=== PATIENT | male | born 2000 | race Caucasian/White ===

== ENCOUNTER 2021-02-20 20:16 | Emergency (ER) | payer BC, SELFPAY ==
[2021-02-20 20:21] VITALS: BP 151/74; PULSE 81; RESP 14; TEMP 36.4; O2SAT 97
--- NOTE | 2021-02-20 20:40 | ED.GENADUL_ITS ---
Discharge Plan Disposition Patient Disposition: HOME Condition: Stable Discharge Details Clinical Impression: Rash Primary Care Provider: Nazario Redman ED Provider: Deejay Johns Home Meds and New Rx's Prescriptions: Continued ondansetron 4 MG tablet,disintegrating 4 mg PO Q8H PRN PRN (Reason: Nausea / Vomiting) Qty: 20 RF: 0 Discharge Instructions Instructions: Acute Rash (ED) Additional Instructions: Rash is not consistent with cellulitis or scabies. Likely secondary to something you came in contact while weed whacking on Friday. As we discussed treat with [id number] Benadryl, topical hydrocortisone cream, and calamine lotion as directed. Please watch for new or worsening symptoms and return to the ER for any concerns. Medical Decision Making 20-year-old male presents with pruritic rash on bilateral forearms that began Friday after he weed wacked outside on Friday with a short-sleeved shirt. He appears well, nontoxic, rash is nowhere else on the body. Clinically this is likely a dermatitis from whatever he may have come in contact with while weed whacking. No one else at home has similar symptoms. No signs of cellulitis or scabies. The rash is only present in the area that was exposed. Discussed presentation and options. Patient comfortable treating this conservatively as a likely contact dermatitis. Will maximize therapy of oral Benadryl, hydrocortisone topical cream, as well as calamine lotion. Patient has no additional questions or concerns and is comfortable with this plan. Medical Records Medical records reviewed: Yes I reviewed the patient's medical records. HPI General Mode of arrival: ambulatory . Date/Time Provider Initiated Documentation: 02/20/21 20:17 . Limitations to Documentation: no limitations . Information obtained by: patient . HPI Narrative: This is a 20-year-old gentleman, denies significant past medical history. He states that on Friday he was outside weed whacking, wearing long pants and a short-sleeved shirt. Friday he awoke noticing a rash that was primarily on his right forearm but slightly on his left forearm. He states that he used a single dose of hydrocortisone cream as well as topical Benadryl. Did not make a significant difference in his symptoms. He states that his symptoms are itchy but denies any real pain. He denies fever, rash elsewhere in his body, numbness, tingling, weakness. He lives with his girlfriend, she is asymptomatic. Patient states that he looked online and he was concerned about the potential of scabies. He denies any contact with anyone who has scabies. He denies any rash in the webbing's of his hand. The pruritus is not worse at night. Related Data Home Medications Medication Instructions Recorded Confirmed ondansetron 4 mg PO Q8H PRN PRN #20 tabef 02/06/18 02/20/21 Previous Rx's Medication Instructions Recorded ondansetron 4 mg PO Q8H PRN PRN #20 tabef 02/06/18 Allergies Allergy/AdvReac Type Severity Reaction Status Date / Time No Known Allergies Allergy Unverified 02/20/21 20:23 General Stated Complaint: RashLesion STEVE: 5 Review of Systems Constitutional Constitutional: Denies fever(s) Cardiovascular Cardiovascular: Denies dyspnea Respiratory Respiratory: Denies dyspnea Musculoskeletal Musculoskeletal: Denies arthralgias, Denies numbness, Denies stiffness and Denies tingling Integumentary/Breasts Skin/Breast: Reports rash Neurologic Neurologic: Denies numbness and Denies tingling [facility] Social History Smoking/Tobacco Use Status: Never Smoking risk assessment performed?: Yes Alcohol Intake: current Alcohol Intake frequency: holidays/special occasions only Alcohol type: beer Drug use: Never Substance use type: does not use Do you feel safe at home: Yes Do you feel safe in your relationship?: Yes Exam Const General: cooperative, healthy appearing, comfortable and no acute distress Orientation: alert and awake [facility] Head: normal to inspection, normocephalic and atraumatic Eyes General: appearance normal, both eyes and all related structures Conjunctivae: conjunctivae normal Neck Neck: normal visual inspection, trachea midline and supple Resp Effort & Inspection: normal respiratory effort and able to speak in complete sentences Cardio Rate: regular rate Rhythm: regular rhythm Skin Rashes: rashes noted Other: Bilateral forearms, higher concentration on the right. There is a blanchable, erythematous, papular rash that is excoriated in some areas. The rash does not go above the upper arm T-shirt line. There is no warmth, tenderness, drainage or discharge. There is no induration or fluctuance. There is no marya levin in the webbing space on either hand. Full range of motion. Neuro, vascular, tendon intact. Normal capillary refill and radial pulse. Neuro General: patient alert, patient awake, moves all extremities and no focal motor deficits Cognition: normal cognition Speech: speech normal Gait: normal gait Sensory Exam: no sensory deficits noted Extrem General: full ROM and capillary refill normal Psych Appearance: grossly normal Mental Status: mental status grossly normal Course Vital Signs Vital signs: Vital Signs Temperature 36.4 C L 02/20/21 20: Pulse 81 02/20/21 20:21 Respiratory Rate 14 02/20/21 20:21 Blood Pressure 151/74 H 02/20/21 20:21 Pulse Oximetry 97 02/20/21 20:21 Temperature 36.4 C L 02/20/21 20:21 Temperature Source Skin 02/20/21 20:21 Pulse 81 02/20/21 20:21 Respiratory Rate 14 02/20/21 20:21 Respiratory Effort Non-Labored 02/20/21 20:24 Blood Pressure 151/74 H 02/20/21 20:21 Blood Pressure Position Sitting 02/20/21 20:21 Pulse Oximetry 97 02/20/21 20:21 Oxygen Delivery Method Room Air 02/20/21 20:21 Oxygen Flow Rate 0 02/20/21 20:21 Pain Level 0 02/20/21 20:21
== END 2021-02-20 20:45 | disposition home or self-care (01) ==
PROVIDERS: Emergency Provider Physician Assistant; PCP Specialist/Technologist Athletic Trainer
DX: R21 Rash and other nonspecific skin eruption (principal); L29.9 Pruritus, unspecified
CPT/HCPCS: 99282; 99283

== ENCOUNTER → 2023-10-14 20:59 | Outpatient (CLI) | payer BC, SELFPAY ==
--- NOTE | 2023-10-14 | DI.RAD_ITS ---
Exam(s) XR CHEST 2V PA LATERAL EXAM: XR CHEST 2V PA LATERAL CLINICAL HISTORY: CHEST PAIN ON BREATHING R07.1 TECHNIQUE: 2D digital imaging was performed. COMPARISON: CR CHEST 2 VIEWS PA,LAT from 01/26/2010 FINDINGS: HEART: Normal size. Aorta: Not dilated. PULMONARY VASCULATURE: Normal. LUNGS: Clear. PLEURAL SPACE: No pleural effusion or pneumothorax. BONE:Unremarkable for age. Soft tissues: Unremarkable. IMPRESSION: No acute abnormality. DATA REPOSITORY: RADIATION DOSE DELIVERED:
--- NOTE | 2023-10-14 16:18 | DI.VRAD_ITS ---
PROCEDURE INFORMATION: Exam: XR Chest Exam date and time: 10/14/2023 4:03 PM Age: 23 years old Clinical indication: Other: Chest pain on breathing TECHNIQUE: Imaging protocol: Radiologic exam of the chest. Views: 2 views. COMPARISON: No relevant prior studies available. FINDINGS: Lungs: Unremarkable. No consolidation. Pleural spaces: Unremarkable. No pleural effusion. No pneumothorax. Heart/Mediastinum: Unremarkable. No cardiomegaly. Bones/joints: Unremarkable. IMPRESSION: No acute findings. Dictated and Authenticated by: Nirmal Hinojosa MD. Ordering:RUSS JI MD
== END ==
PROVIDERS: PCP Specialist/Technologist Athletic Trainer; Visit Provider Nurse Practitioner Family
DX: R07.1 Chest pain on breathing (principal)
CPT/HCPCS: 71046